=== PATIENT | male | born 1965 | race Caucasian/White ===

== ENCOUNTER 2022-12-18 01:24 | Day surgery (SDC) | payer BC, SELFPAY ==
[2022-12-05 12:40] VITALS: BMI 26.5
[2022-12-18 09:03] VITALS: BP 142/92; PULSE 50; RESP 18; TEMP 36.1; O2SAT 100
[2022-12-18 09:04] VITALS: BMI 26.5
[2022-12-18] MEDS: LACTATED RINGERS 1,000 ML 150 ML IV CONT (09:16)
--- NOTE | 2022-12-18 09:40 | P.HP_ITS ---
History of Present Illness History of Present Illness Consent: Risks, benefits, and alternatives have been discussed and questions answered. Patient agrees to proceed with procedure. Chief complaint: neoplasm screening Narrative: Conrado Hampton is a 57 year old male Presents for screening colonoscopy. Patient's current weight appetite and bowel movements are normal. Patient denies abdominal pain. He has had no bleeding. Family history noncontributory. Previous colonoscopy 10 years ago was unremarkable. Review of Systems Review of Systems: Review of systems noncontributory. [facility] Surgical History Surgical History H/O colonoscopy (~10/2012) H/O foot surgery (~1980) Family History Family History Father Diabetes mellitus Hypertension Social History Social History Social History: Caffeine- rarely Smoking status: Never smoker Second hand tobacco smoke exposure: No Alcohol intake: current Drinks per week: 1 Alcohol use details: beer Substance use: never Substance use type: does not use Lack of Transportation: No Lack of Food: Never True Current Housing: I Have Housing Concerned About Future Housing: No Difficulty Paying Gas/Electric Bills: No Difficulty Paying for Meds: No Currently Unemployed: No Education: Associate Degree Difficulty w/ Childcare or Family Care: No Living arrangements: with family Occupation/Education: occupation Gender identity (if verbalized by the patient): Male Spiritual care concerns: No Agree to blood products: Yes Meds Home Medications and Allergies Home Medications Medication Instructions Recorded Confirmed Type ferrous sulfate 325 mg (65 mg 325 mg PO DAILY 10/31/21 12/18/22 History iron) tablet qnclupkh-mry-zjkuen 5 mg-zeaxanth 1 cap PO DAILY 10/31/21 12/18/22 History 1 mg-bilberry 7.5 mg-herbal capsule ([employer] Formula) cholecalciferol (vitamin D3) 25 25 mcg PO DAILY #90 tabs 10/09/22 12/18/22 Rx mcg (1,000 unit) tablet tadalafil 5 mg tablet 5 mg PO DAILY 10/09/22 12/18/22 History Allergies Allergy/AdvReac Type Severity Reaction Status Date / Time No Known Allergies Allergy Verified 12/18/22 09:01 Vital Signs Vital Signs - 24 hr 12/18/22 09:03 Temperature 97.0 F L Pulse Rate 50 L Respiratory Rate 18 Blood Pressure 142/92 H Pulse Oximetry 100 Oxygen Delivery Room Air Exam Narrative: Physical exam reveals patient to be alert. Vital signs stable. HEENT exam is unremarkable. Patient is anicteric. Lungs are clear to auscultation and percussion. Heart is without murmur or extra sounds. Abdomen bowel sounds present soft nontender no organomegaly. Digital external rectal exam is normal. Assessment and Plan Assessment and plan (1) Screening for colon cancer: Code(s): Z12.11 - Encounter for screening for malignant neoplasm of colon Status: Acute Assessment and Plan: Patient presents for neoplasia screening colonoscopy. He appears to be at average risk for colon polyps. Further recommendations may be giv
[2022-12-18 10:36] VITALS: BP 115/72; PULSE 54; RESP 16; O2SAT 100
[2022-12-18 10:46] VITALS: BP 115/75; PULSE 46; RESP 18; O2SAT 100
[2022-12-18 10:56] VITALS: BP 118/67; PULSE 45; RESP 21; O2SAT 99
== END 2022-12-18 11:13 | disposition home or self-care (01) ==
PROVIDERS: PCP Family Medicine; Visit Provider Internal Medicine Gastroenterology
PROC: 0DJD8ZZ Inspection of Lower Intestinal Tract, Via Natural or Artificial Opening Endoscopic (ICD-10-PCS; CPT 45378; principal; 2022-12-18 10:15)
DX: Z12.11 Encounter for screening for malignant neoplasm of colon (principal); K64.8 Other hemorrhoids; K57.30 Diverticulosis of large intestine without perforation or abscess without bleeding
CPT/HCPCS: 45378; J2704; J7120

== ENCOUNTER 2023-06-07 17:39 | Emergency (ER) | payer BC, SELFPAY ==
--- NOTE | 2023-06-07 17:45 | ED.URI ---
HPI - URI/Sore Throat General Chief Complaint: Upper Respiratory Infection Stated Complaint: Body Aches,Cough,Congestion Time Seen by Provider: 06/07/23 17:45 Source: patient Mode of arrival: ambulatory Limitations: no limitations History of Present Illness HPI Narrative: Patient is a 58-year-old male who presents with 2 days of body aches, cough, congestion and fever. Has taken payg-ywd-edcogrg cold and flu medicine with no relief. Patient states he has never felt this horrible and has no history of COVID. Denies any known sick contacts but was vacation this past weekend. Denies any sore throat, nausea, vomiting, diarrhea. Related Data Home Medications Medication Instructions Recorded Confirmed ferrous sulfate 325 mg (65 mg 325 mg PO DAILY 10/31/21 04/10/23 iron) tablet pevmthxo-xrg-sblodr 5 mg-zeaxanth 1 cap PO DAILY 10/31/21 04/10/23 1 mg-bilberry 7.5 mg-herbal capsule ([employer] [facility] [employer] [facility] Formula) tadalafil 5 mg tablet 5 mg PO DAILY 10/09/22 04/10/23 Allergies Allergy/AdvReac Type Severity Reaction Status Date / Time tobramycin Allergy Swelling Verified 06/07/23 18:03 hydrocodone AdvReac Other Verified 06/07/23 18:04 Review of Systems Review of Systems: All systems reviewed & are unremarkable except as noted in HPI and below Constitutional: Constitutional: Reports body ache(s), Denies chills, Denies fatigue, Reports fever(s), Denies headache(s), Denies malaise and Denies weakness Eyes: Eyes: Denies blurry vision, Denies itchy eyes and Denies loss of vision ENT: Denies otalgia, Denies headache(s), Reports nasal congestion, Denies sinus pain and Denies sore throat Cardiovascular: Cardiovascular: Denies chest pain, Denies irregular heart rhythm and Denies dyspnea Respiratory: Respiratory: Reports cough and Denies dyspnea Gastrointestinal: Gastrointestinal: Denies abdominal pain, Denies diarrhea, Denies nausea and Denies vomiting Musculoskeletal: Musculoskeletal: Denies back pain, Reports myalgias and Denies arthralgias Integumentary/Breasts: Skin/Breast: Denies pruritus and Denies rash Neurologic: Denies headache(s), Denies loss of vision and Denies weakness Psychiatric: Psychiatric: Reports no additional psychiatric complaints Endocrine: Endocrine: Denies fatigue Allergic/Immunologic: Allergic/Immunologic: Denies itchy eyes PMFSH Surgical History Surgical History H/O colonoscopy (~10/2012) H/O foot surgery (~1980) Family History Family History Father Diabetes mellitus Hypertension Social History Social History Social History: Caffeine- rarely Smoking status: Never smoker Second hand tobacco smoke exposure: No Alcohol intake: current Drinks per week: 1 Alcohol use details: beer Substance use: never Substance use type: does not use Lack of Transportation: No Lack of Food: Never True Current Housing: I Have Housing Concerned About Future Housing: No Difficulty Paying Gas/Electric Bills: No Difficulty Paying for Meds: No Currently Unemployed: No Education: Associate Degree Difficulty w/ Childcare or Family Care: No Living arrangements: with family Occupation/Education: occupation Gender identity (if verbalized by the patient): Male Spiritual care concerns: No Agree to blood products: Yes Comments At time of signature, agree with nursing past medical, surgical, social and family history. There is no relevant family history pertinent to the presenting complaint. Exam Const: General: cooperative, healthy appearing, comfortable, no acute distress and well nourished Nutritional Appearance: well nourished Orientation/consciousness: patient oriented x3 Limitations: no limitations HENMT: Head: normal to inspection, normocephalic and atraumatic Ears: hearing grossly normal bilate
[2023-06-07 17:49] VITALS: BP 127/66; PULSE 85; RESP 18; TEMP 37.9; O2SAT 97
== END 2023-06-07 18:51 | disposition home or self-care (01) ==
PROVIDERS: Emergency Provider Nurse Practitioner Family; PCP Nurse Practitioner
DX: U07.1 COVID-19 (principal)
CPT/HCPCS: 87426; 99213; C9803; G0463